=== PATIENT | female | born 1950 | race American Indian/Alaskan Native ===

== ENCOUNTER 2017-07-09 14:32 | Outpatient (CLI) | payer MEDICARE ==
--- NOTE | 2017-07-10 09:26 | Mammography Report ---
BILATERAL DIGITAL SCREENING MAMMOGRAM with CAD : 07/09/17 14:32:00 CLINICAL: Routine screening. COMPARISON:11/24/15 FINDINGS: The breasts are heterogeneously dense, which may obscure small masses.Stable bilateral benign calcifications. No mass, architectural distortion or suspicious calcifications. IMPRESSION: No mammographic evidence of malignancy. BI-RADS CATEGORY: 2 -- Benign RECOMMENDATION: Routine mammographic screening in one year. COMMENT: Patient follow-up letters are generated by our [employer] application.
== END 2017-07-09 14:33 | disposition home or self-care (01) ==
LOC: MAMMO 14:32
PROVIDERS: ATTEND Obstetrics & Gynecology
DX: Z12.31 Encounter for screening mammogram for malignant neoplasm of breast (principal)
CPT/HCPCS: 77067

== ENCOUNTER 2018-10-27 13:03 | Outpatient (CLI) | payer MEDICARE ==
--- NOTE | 2018-10-27 14:25 | Mammography Report ---
BILATERAL DIGITAL SCREENING MAMMOGRAM WITH CAD INDICATION: Routine screening mammography. TECHNIQUE: Digital bilateral 2D mammography was obtained in the craniocaudal and mediolateral obliq ue projections. This examination was interpreted with the benefit of Computer-Aided Detection analysi s. COMPARISON: 07/09/2017 FINDINGS: Breast Density: The breasts are heterogeneously dense, which may obscure small masses. There is no evidence of dominant mass, suspicious calcifications or architectural distortion in eith er breast. Bilateral scattered calcifications with benign morphology. IMPRESSION:No mammographic evidence of malignancy. BI-RADS Category 2: Benign. No mammographic evidence of malignancy. Recommend routine screening ma mmography in one year. A "normal" or negative report should not discourage follow up or biopsy of a clinically significant f inding. A written summary of these findings will be mailed to the patient. The patient will be entered into a mammography reporting system which will generate a reminder letter for the patient's next appointmen t at the appropriate interval. The [employer] recommends yearly mammograms starting at age 40 and continuing as l jerson as a woman is in good health. Breast MRI is recommended for women with an approximate 20-25% or greater lifetime risk of breast cancer, including women with a strong family history of breast or ova adrian cancer or who have been treated for Hodgkin's disease. Signer Name: Jigar Garcia MD Signed: 10/27/2018 2:21 PM Workstation Name: [id number]
--- NOTE | 2018-10-27 14:37 | Mammography Report ---
BONE DENSITOMETRY. History: Postmenopausal Procedure: Patient scanned with an Hologic DXA System. Examination was performed of the lumbar spin e and left hip. Comparison: 09/09/2015. Findings: The BMD of the lumbar spine is 1.132 gm/cm2 with a T-score of 0.8 and a Z score of 2.1. Percent laird ge from previous exam is +8.7%. The bone mineral density (BMD) of the left femoral neck is 0.705 gm/cm2 with a T-score of -1.3 and a Z score of -0.3. The BMD of the total left hip is 0.785 gm/cm2 with a T-score of -1.3 and a Z score o f -0.5. . Percent change from previous exam is +8.7%. Impression: WHO classification: Normal with average fracture risk based on lumbar spine measurements. WHO classification: Osteopenia with increased fracture risk based on left hip measurements.A signifi cant improvement in both spine and left hip BMD compared to the previous exam. A followup bone density test is recommended in one year to monitor response to therapy. A more detailed DXA Bone Densitometry report is available upon request from [facility]. Signer Name: Jigar Garcia MD Signed: 10/27/2018 2:32 PM Workstation Name: [id number]
== END 2018-10-27 13:04 | disposition home or self-care (01) ==
LOC: MAMMO 13:03
PROVIDERS: ATTEND Family Medicine
DX: Z12.31 Encounter for screening mammogram for malignant neoplasm of breast (principal); M85.88 Other specified disorders of bone density and structure, other site; Z78.0 Asymptomatic menopausal state
CPT/HCPCS: 77067; 77080